=== PATIENT | male | born 1990 | race African-American/Black ===

== ENCOUNTER 2016-06-17 13:05 | Emergency (ER) | payer MEDICAID ==
[~2016-06-17] VITALS: Ht 190.5 cm; Wt 100.0 kg
[2016-06-17 13:10] VITALS: BP 122/67
== END 2016-06-17 13:44 | disposition home or self-care (01) ==
LOC: ED 13:14
DX: S39.91XA Unspecified injury of abdomen, initial encounter (principal); F17.200 Nicotine dependence, unspecified, uncomplicated; X99.1XXA Assault by knife, initial encounter; Y93.89 Activity, other specified; Y92.89 Other specified places as the place of occurrence of the external cause; Y99.8 Other external cause status
CPT/HCPCS: 71010

== ENCOUNTER 2018-03-06 23:43 | Emergency (ER) | payer MEDICAID, OTHER ==
[~2018-03-06] VITALS: Ht 190.5 cm; Wt 104.0 kg
[2018-03-07] MEDS ORDERED: LIDOCAINE 2%, 20ML SQ ONE
[2018-03-07] MEDS ORDERED: BACITRACIN ZINC OINT 500U/GM, 0.9 GM ONE (00:02)
[2018-03-07] MEDS ORDERED: LIDOCAINE-MPF 1%, 5ML ONE (00:02)
[2018-03-07 01:01] VITALS: BP 124/74
== END 2018-03-07 01:03 | disposition home or self-care (01) ==
LOC: ED 23:59
DX: T22.212A Burn of second degree of left forearm, initial encounter (principal); T31.0 Burns involving less than 10% of body surface; S01.112A Laceration without foreign body of left eyelid and periocular area, initial encounter; S05.42XA Penetrating wound of orbit with or without foreign body, left eye, initial encounter; Y04.0XXA Assault by unarmed brawl or fight, initial encounter; X98.8XXA Assault by other hot objects, initial encounter; Y93.89 Activity, other specified; Y92.89 Other specified places as the place of occurrence of the external cause; Y99.8 Other external cause status
CPT/HCPCS: 12013; 16020; 99284